=== PATIENT | female | born 1930 | race Hispanic/Latino ===

== ENCOUNTER 2017-12-04 08:15 | Day surgery (SDC) | payer MEDICARE ==
[~2017-12-04] VITALS: Ht 152.4 cm; Wt 90.8 kg
[~2017-12-04 08:15] MED LIST: ADV250 IH; ALBUHFA IH; ALEN70TA47 PO; ALLO100T PO; APIX2.5T PO; BRIM5DRO OU; CHOL200013 PO; CILO100T PO; DILT60CA PO; FURO40TA5 PO; LOSA100T20 PO; MAGN400T6 PO; NYSTPW TP; PIOG15TA66 PO; POTA10CA44 PO; SITA50TA PO; SODIUM CHLORIDE 0.9% 1000ML 1,000 ML IV ONE; THYR30TA2 PO
[2017-12-04 09:05] VITALS: BP 137/75
[2017-12-04 10:30] VITALS: BP 87/36
[2017-12-04 10:35] VITALS: BP 96/47
[2017-12-04 10:40] VITALS: BP 98/40
[2017-12-04 10:45] VITALS: BP 110/56
== END 2017-12-04 11:10 | disposition home or self-care (01) ==
LOC: DAH 08:15 → ENDO 08:15
PROVIDERS: ATTEND Internal Medicine Gastroenterology
DX: K29.50 Unspecified chronic gastritis without bleeding (principal); K31.89 Other diseases of stomach and duodenum; I48.91 Unspecified atrial fibrillation; E11.22 Type 2 diabetes mellitus with diabetic chronic kidney disease; N18.9 Chronic kidney disease, unspecified; I12.9 Hypertensive chronic kidney disease with stage 1 through stage 4 chronic kidney disease, or unspecified chronic kidney disease; K59.01 Slow transit constipation; K21.9 Gastro-esophageal reflux disease without esophagitis; E78.5 Hyperlipidemia, unspecified; E66.9 Obesity, unspecified; M19.90 Unspecified osteoarthritis, unspecified site; M81.0 Age-related osteoporosis without current pathological fracture; Z79.899 Other long term (current) drug therapy; Z98.890 Other specified postprocedural states; Z88.8 Allergy status to other drugs, medicaments and biological substances; Z68.39 Body mass index [BMI] 39.0-39.9, adult
CPT/HCPCS: 43239; 88305; 88342; 93005; A4606; J7030

== ENCOUNTER 2018-02-24 15:37 | Emergency (ER) | payer MEDICARE ==
[~2018-02-24 15:37] MED LIST changes: +ALEN70TA10 PO; -ALEN70TA47 PO; -LOSA100T20 PO; +LOSA100T58 PO; -NYSTPW TP; -SODIUM CHLORIDE 0.9% 1000ML 1,000 ML IV ONE
[2018-02-24 16:10] LABS: BASOPHILS % (AUTO) 0.3 % (0.0-5.0); EOSINOPHILS % (AUTO) 0.1 % (0.0-8.0); HEMATOCRIT 40.3 % (36-48); LYMPHOCYTES % (AUTO) 8.8 % (21.0-51.0); MEAN CORPUSCULAR HGB CONC 32.3 g/dL (32.0-36.0); MEAN CORPUSCULAR VOLUME 99.2 fL (79-99); MONOCYTES % (AUTO) 3.8 % (3.0-13.0); PLATELET COUNT (AUTO) 179 K/uL (130-400); RED BLOOD CELL COUNT(AUTO) 4.06 MIL/uL (4.00-5.50); RED CELL DISTRIBUTION WIDTH 14.6 % (11.0-15.5); WHITE BLOOD COUNT (AUTO) 9.4 K/uL (4.8-10.8)
[2018-02-24] MEDS ORDERED: DEXAMETHASONE SOD PHOSPHATE 10MG/ML 1ML VIAL ONE (16:18)
[2018-02-24] MEDS ORDERED: IPRATROPIUM/ALBUTEROL SULFATE 3 ML SOLUTION IH ONE (16:25)
[2018-02-24 16:30] LABS: INR 1.01 (0.85-1.15); PARTIAL THROMBOPLASTIN TIME 26.5 SEC (26.3-35.5); PROTHROMBIN TIME 10.6 SEC (9.6-11.6)
[2018-02-24 16:37] LABS: CREATININE 1.3 mg/dL (0.5-1.5); POTASSIUM 4.7 mmol/L (3.5-5.1)
[2018-02-24 16:42] LABS: ALBUMIN 2.9 g/dL (3.5-5.0); BILIRUBIN,TOTAL 0.3 mg/dL (0.2-1.0); TOTAL PROTEIN, SERUM 7.1 g/dL (6.0-8.3)
== END 2018-02-24 18:36 | disposition home or self-care (01) ==
LOC: EDH 15:37
DX: J45.901 Unspecified asthma with (acute) exacerbation (principal); R21 Rash and other nonspecific skin eruption; I48.91 Unspecified atrial fibrillation; I25.10 Atherosclerotic heart disease of native coronary artery without angina pectoris; M19.90 Unspecified osteoarthritis, unspecified site; E11.9 Type 2 diabetes mellitus without complications; I11.0 Hypertensive heart disease with heart failure; I50.9 Heart failure, unspecified; Z88.8 Allergy status to other drugs, medicaments and biological substances; Z98.890 Other specified postprocedural states
CPT/HCPCS: 36415; 71045; 80053; 83880; 84484; 85025; 85610; 85730; 87040; 93005; 94640; 96374; 99284; J1100

== ENCOUNTER → 2020-02-11 | Outpatient (CLI) | payer MEDICARE ==
[~2020-02-11] MED LIST changes: -ALEN70TA10 PO; +ALEN70TA69 PO; -MAGN400T6 PO; +MAGN400T8 PO
--- NOTE | 2020-02-11 10:00 | NUR ---
MBSS COMPLETED. PENETRATION WITH THIN LIQUIDS VIA STRAW. RECOMMEND FINELY CHOPPED, THIN LIQUIDS; PILLS WHOLE WITH LIQUIDS. STEEL FIXER EXPLAINED RESULTS AND RECOMMENDATIONS IN HER SLEET[place]UTE LANGUAGE OF ROMANIAN. Pt IS HARD OF HEARING. RESULTS AND RECOMMENDATIONS ALSO EXPLAINED TO Pt'S SON WHO ACCOMPANIED Pt. STEEL FIXER PROVIDED WRITTEN HANDOUT WITH RESULTS AND RECOMMENDATIONS TO PROVIDE TO CAREGIVER (DAUGHTER). ALL QUESTIONS ANSWERED AT THIS TIME. STEEL FIXER PROVIDED EXTENSION 1612. Addendum: 02/12/20 at [address] Amended: Links added. Addendum: 02/12/20 at [address] ADD RECOMMENDATIONS: 1. GI CONSULT SECONDARY TO Pt STATING FOOD "GETS STUCK" POINTING TO LEVEL OF ESOPHAGUS
== END | disposition home or self-care (01) ==
LOC: RAH 09:41
PROVIDERS: ATTEND Family Medicine
DX: R13.10 Dysphagia, unspecified (principal); J69.0 Pneumonitis due to inhalation of food and vomit; R11.10 Vomiting, unspecified
CPT/HCPCS: 74230; 92611

== ENCOUNTER 2020-03-09 06:45 | Day surgery (SDC) | payer MEDICARE ==
[2020-03-09] VITALS (8 sets, daily range): BP systolic 140–200; BP diastolic 69–93
[~2020-03-09] VITALS: Ht 152.4 cm; Wt 79.8 kg
[~2020-03-09 06:45] MED LIST changes: -ALEN70TA69 PO; +ALEN70TA80 PO; +SODIUM CHLORIDE 0.9% 1000ML 1,000 ML IV ONE
[2020-03-09] MEDS ORDERED: GABA-533 PO (08:05)
[2020-03-09] MEDS ORDERED: PANT40TA54 PO (08:05)
[2020-03-09] MEDS ORDERED: OLME40TA18 PO (08:05)
[2020-03-09] MEDS ORDERED: MEMA5TAB42 PO (08:05)
[2020-03-09] MEDS ORDERED: LORA10TA7 PO (08:05)
[2020-03-09] MEDS ORDERED: LEVO50CA4 PO (08:05)
[2020-03-09] MEDS ORDERED: CLON0.1T PO (08:05)
[2020-03-09] MEDS ORDERED: VITAD50000 PO (08:05)
[2020-03-09] MEDS ORDERED: CARV12.511 PO (08:05)
[2020-03-09] MEDS ORDERED: TERB250T51 PO (08:05)
[2020-03-09] MEDS ORDERED: OXYB5TAB15 PO (08:05)
[2020-03-09] MEDS ORDERED: SERT50TA12 PO (08:05)
[2020-03-09] MEDS ORDERED: SIMV10TA97 PO (08:05)
[2020-03-09] MEDS ORDERED: PROPOFOL 10 MG/ML 20ML VIAL IV ONE (08:31)
== END 2020-03-09 09:40 | disposition home or self-care (01) ==
LOC: ENDO 06:45 → DAH 06:45 → ENDO 09:40
PROVIDERS: ATTEND Internal Medicine
DX: R13.10 Dysphagia, unspecified (principal); Z20.828 Contact with and (suspected) exposure to other viral communicable diseases; K29.50 Unspecified chronic gastritis without bleeding; K31.89 Other diseases of stomach and duodenum; K44.9 Diaphragmatic hernia without obstruction or gangrene; K21.9 Gastro-esophageal reflux disease without esophagitis; E11.22 Type 2 diabetes mellitus with diabetic chronic kidney disease; I12.9 Hypertensive chronic kidney disease with stage 1 through stage 4 chronic kidney disease, or unspecified chronic kidney disease; N18.9 Chronic kidney disease, unspecified; I45.10 Unspecified right bundle-branch block; E66.01 Morbid (severe) obesity due to excess calories; E03.9 Hypothyroidism, unspecified; E78.5 Hyperlipidemia, unspecified; M81.0 Age-related osteoporosis without current pathological fracture; I48.20 Chronic atrial fibrillation, unspecified; M19.90 Unspecified osteoarthritis, unspecified site; H91.90 Unspecified hearing loss, unspecified ear; K76.0 Fatty (change of) liver, not elsewhere classified; Z98.890 Other specified postprocedural states; Z88.8 Allergy status to other drugs, medicaments and biological substances; Z79.899 Other long term (current) drug therapy; Z86.010 Personal history of colon polyps; Z79.890 Hormone replacement therapy; Z79.84 Long term (current) use of oral hypoglycemic drugs; Z79.01 Long term (current) use of anticoagulants; Z68.35 Body mass index [BMI] 35.0-35.9, adult
CPT/HCPCS: 43239; 82948 ×2; 88305; 88342; 93005; A4215 ×2; A4221; A4222; A4223; A4606; A4620; A4657; A4663; C9803; J2704; J7030; U0003

== ENCOUNTER → 2020-03-15 | Outpatient (CLI) | payer MEDICARE ==
[~2020-03-15] MED LIST changes: +CARV12.511 PO; -CHOL200013 PO; -CILO100T PO; +CLON0.1T PO; -DILT60CA PO; -FURO40TA5 PO; +GABA-533 PO; +IOHEXOL 350 MG/ML 100ML INFUS..BTL IV ONE; +LEVO50CA4 PO; +LORA10TA7 PO; -LOSA100T58 PO; -MAGN400T8 PO; +MEMA5TAB42 PO; +OLME40TA18 PO; +OXYB5TAB15 PO; +PANT40TA54 PO; -PIOG15TA66 PO; -POTA10CA44 PO; +SERT50TA12 PO; +SIMV10TA97 PO; -SODIUM CHLORIDE 0.9% 1000ML 1,000 ML IV ONE; +TERB250T51 PO; -THYR30TA2 PO; +VITAD50000 PO
== END | disposition home or self-care (01) ==
LOC: RAH 08:56
PROVIDERS: ATTEND Internal Medicine Gastroenterology
DX: K46.9 Unspecified abdominal hernia without obstruction or gangrene (principal); R63.4 Abnormal weight loss
CPT/HCPCS: 74178; Q9967

== ENCOUNTER 2021-05-07 21:14 | Observation (INO) | payer MEDICARE ==
[~2021-05-07] VITALS: Ht 152.4 cm; Wt 71.6 kg
[~2021-05-07 21:14] MED LIST changes: -IOHEXOL 350 MG/ML 100ML INFUS..BTL IV ONE; +SERT-439 PO; -SERT50TA12 PO; -TERB250T51 PO; +TERB250T89 PO
[2021-05-07 22:07] LABS: BILIRUBIN,URINE Negative (NEGATIVE); COLOR,URINE Yellow (YELLOW); GLUCOSE, URINE (UA) Negative (NEGATIVE); KETONES,URINE Negative (NEGATIVE); LEUKOCYTE ESTERASE ,URINE Large (NEGATIVE); NITRATE,URINE Negative (NEGATIVE); OCCULT BLOOD,URINE Moderate (NEGATIVE); PH,URINE 5.5 (5.0-8.0); PROTEIN,URINE Negative (NEGATIVE); UROBILINOGEN,URINE 0.2 mg/dL (0.2-1.0)
[2021-05-07 22:11] LABS: APPEARANCE,URINE CLOUDY (CLEAR)
[2021-05-07 22:20] LABS: BASOPHILS % (AUTO) 0.4 % (0.0-5.0); EOSINOPHILS % (AUTO) 2.3 % (0.0-8.0); HEMATOCRIT 36.3 % (36-48); LYMPHOCYTES % (AUTO) 16.5 % (21.0-51.0); MEAN CORPUSCULAR HEMOGLOBIN 31.1 pg (27.0-33.0); MEAN CORPUSCULAR HGB CONC 31.7 g/dL (32.0-36.0); MEAN CORPUSCULAR VOLUME 98.1 fL (79-99); NEUTROPHILS % (AUTO) 71.5 % (40.0-77.0); PLATELET COUNT (AUTO) 145 K/uL (130-400); RED CELL DISTRIBUTION WIDTH 13.7 % (11.0-15.5); WHITE BLOOD COUNT (AUTO) 7.1 K/uL (4.8-10.8)
[2021-05-07 22:24] LABS: BACTERIA,URINE Few /HPF (None Seen); SQUAMOUS EPITHELIAL CELL,UR 0-2 /HPF (0-2); WBC,URINE 51-100 /HPF (0-1)
[2021-05-07 22:38] LABS: POTASSIUM 5.3 mmol/L (3.5-5.1)
[2021-05-07 22:39] LABS: ALBUMIN 3.2 g/dL (3.5-5.0); BILIRUBIN,TOTAL 0.2 mg/dL (0.2-1.0); CREATININE 2.3 mg/dL (0.5-1.5); TOTAL PROTEIN, SERUM 7.4 g/dL (6.0-8.3)
[2021-05-07] MEDS ORDERED: CEFTRIAXONE 1G VIAL IVP STA (22:52)
[2021-05-08] MEDS ORDERED: CEFTRIAXONE 1G VIAL IVP ONE (01:30)
[2021-05-08] MEDS ORDERED: NITROGLYCERIN 0.4 MG SL TAB SL PRN (02:30)
[2021-05-08] MEDS ORDERED: ONDANSETRON 4MG INJ IV PRN (02:30)
[2021-05-08] MEDS ORDERED: MAG/ALUM/SIMETH 30 ML UDCUP PO PRN (02:30)
[2021-05-08] MEDS ORDERED: LACTULOSE 20 GM/30 ML UDCUP PO PRN (02:30)
[2021-05-08] MEDS ORDERED: ACETAMINOPHEN 325 MG TAB PO PRN ×2 (02:30)
[2021-05-08] MEDS ORDERED: GUAIFENESIN-DM 200/20 MG 10 ML PO PRN (02:30)
[2021-05-08 03:45] VITALS: BP 165/67
[2021-05-08] MEDS ORDERED: DEXTROSE 50%-WATER 50 ML DISP.SYRIN IV PRN (04:30)
[2021-05-08] MEDS ORDERED: POTASSIUM CHLORIDE 10% ELIXIR 20 MEQ/15 ML UDCUP PO PRN (04:30)
[2021-05-08] MEDS ORDERED: POTASSIUM CHLORIDE 10MEQ/100ML 100 ML IV PRN (04:30)
[2021-05-08] MEDS ORDERED: KCL 20 MEQ ERTAB PO PRN (04:30)
[2021-05-08] MEDS ORDERED: GLUCAGON 1MG KIT 1 MG ML IM PRN (04:30)
[2021-05-08] MEDS ORDERED: MAGNESIUM 2GM PREMIX 50ML 50 ML IV PRN (04:30)
[2021-05-08 04:59] LABS: BASOPHILS % (AUTO) 0.4 % (0.0-5.0); EOSINOPHILS % (AUTO) 2.7 % (0.0-8.0); HEMATOCRIT 37.9 % (36-48); LYMPHOCYTES % (AUTO) 15.6 % (21.0-51.0); MEAN CORPUSCULAR HEMOGLOBIN 31.7 pg (27.0-33.0); MEAN CORPUSCULAR HGB CONC 31.9 g/dL (32.0-36.0); MEAN CORPUSCULAR VOLUME 99.2 fL (79-99); MONOCYTES % (AUTO) 9.8 % (3.0-13.0); NEUTROPHILS % (AUTO) 71.1 % (40.0-77.0); PLATELET COUNT (AUTO) 140 K/uL (130-400); RED BLOOD CELL COUNT(AUTO) 3.82 MIL/uL (4.00-5.50); RED CELL DISTRIBUTION WIDTH 13.8 % (11.0-15.5); WHITE BLOOD COUNT (AUTO) 6.7 K/uL (4.8-10.8)
[2021-05-08] MEDS ORDERED: HYDRALAZINE HCL 10 MG TABLET PO PRN (05:00)
[2021-05-08 05:11] LABS: INR 1.07 (0.85-1.15); PROTHROMBIN TIME 11.6 SEC (9.6-11.6)
[2021-05-08 05:12] LABS: PARTIAL THROMBOPLASTIN TIME 35.3 SEC (26.3-35.5)
[2021-05-08 05:18] LABS: HEMOGLOBIN A1C 6.4 % (4.0-6.0)
[2021-05-08] MEDS ORDERED: SIMV10TA97 PO (05:22)
[2021-05-08] MEDS ORDERED: FURO20TA4 PO (05:22)
[2021-05-08] MEDS ORDERED: CARV12.511 PO (05:22)
[2021-05-08] MEDS ORDERED: CLON0.1T PO (05:22)
[2021-05-08] MEDS ORDERED: SERT-439 PO (05:22)
[2021-05-08] MEDS ORDERED: APIX2.5T PO (05:22)
[2021-05-08] MEDS ORDERED: ERGO500093 PO (05:22)
[2021-05-08] MEDS ORDERED: OLME40TA18 PO (05:22)
[2021-05-08 05:24] LABS: ALBUMIN 3.1 g/dL (3.5-5.0); BILIRUBIN,TOTAL 0.2 mg/dL (0.2-1.0); CREATININE 2.2 mg/dL (0.5-1.5); POTASSIUM 5.5 mmol/L (3.5-5.1); THYROID STIMULATING HORMONE 5.32 uIU/mL (0.36-3.74); TOTAL PROTEIN, SERUM 7.4 g/dL (6.0-8.3)
[2021-05-08 07:10] VITALS: BP 157/53
[2021-05-08] MEDS: INSULIN HUMULIN R 100 UNIT/ML 3ML SQ SCH ×4 (07:30→21:00)
[2021-05-08] MEDS: PANTOPRAZOLE 40 MG/VIAL IVP SCH ×2 (08:53→21:16)
[2021-05-08] MEDS: FUROSEMIDE 20MG VIAL IV SCH (08:54)
[2021-05-08] MEDS: MEMANTINE HCL 5 MG TABLET PO SCH ×2 (08:54→21:16)
[2021-05-08] MEDS: LEVOTHYROXINE 50 MCG TABLET PO SCH (08:54)
[2021-05-08] MEDS: APIXABAN 2.5 MG TABLET PO SCH ×2 (08:55→21:31)
[2021-05-08 11:05] VITALS: BP 154/72
[2021-05-08 15:05] VITALS: BP 148/58
[2021-05-08 19:59] LABS: MEAN CORPUSCULAR HEMOGLOBIN 31.9 pg (27.0-33.0); MEAN CORPUSCULAR HGB CONC 33.1 g/dL (32.0-36.0); MEAN CORPUSCULAR VOLUME 96.2 fL (79-99); PLATELET COUNT (AUTO) 150 K/uL (130-400); RED BLOOD CELL COUNT(AUTO) 3.64 MIL/uL (4.00-5.50); RED CELL DISTRIBUTION WIDTH 13.8 % (11.0-15.5); WHITE BLOOD COUNT (AUTO) 7.7 K/uL (4.8-10.8)
[2021-05-08 20:00] VITALS: BP 140/59
[2021-05-08 20:13] LABS: BILIRUBIN,TOTAL 0.2 mg/dL (0.2-1.0); CREATININE 1.8 mg/dL (0.5-1.5); POTASSIUM 4.7 mmol/L (3.5-5.1); TOTAL PROTEIN, SERUM 7.2 g/dL (6.0-8.3)
[2021-05-08 20:28] LABS: BASOPHILS % (MANUAL) 1 % (0-2); EOSINOPHILS % (MANUAL) 2 % (1-6); LYMPHOCYTES % (MANUAL) 14 % (22-44); MAN.DIFF COMMENT-IMPRESSION MANUAL DIFFERENTIAL; MONOCYTES % (MANUAL) 7 % (2-9); SEGMENTED NEUTROPHILS % 76 % (40-70)
[2021-05-08 20:29] LABS: PLATELET MORPHOLOGY COMMENT ADEQUATE
[2021-05-08] MEDS: OXYBUTYNIN CHLORIDE 5 MG TABLET PO SCH (21:16)
[2021-05-08] MEDS: CEFTRIAXONE 1G VIAL IVP SCH (21:16)
[2021-05-08] MEDS: SIMVASTATIN 20 MG TABLET PO SCH (21:16)
[2021-05-08] MEDS: SERTRALINE HCL 50 MG TABLET PO SCH (21:17)
[2021-05-08 23:46] VITALS: BP 109/50
[2021-05-09 04:32] VITALS: BP 127/61
[2021-05-09 07:30] VITALS: BP 123/54
[2021-05-09] MEDS: INSULIN HUMULIN R 100 UNIT/ML 3ML SQ SCH ×4 (07:30→20:28)
[2021-05-09] MEDS: MEMANTINE HCL 5 MG TABLET PO SCH ×2 (10:16→20:11)
[2021-05-09] MEDS: APIXABAN 2.5 MG TABLET PO SCH ×2 (10:16→20:11)
[2021-05-09] MEDS: PANTOPRAZOLE 40 MG/VIAL IVP SCH ×2 (10:16→20:11)
[2021-05-09] MEDS: OXYBUTYNIN CHLORIDE 5 MG TABLET PO SCH ×2 (10:16→20:10)
[2021-05-09] MEDS: FUROSEMIDE 20MG VIAL IV SCH (10:16)
[2021-05-09] MEDS: LEVOTHYROXINE 50 MCG TABLET PO SCH (10:17)
[2021-05-09 11:00] VITALS: BP 121/50
[2021-05-09 16:00] VITALS: BP 114/58
[2021-05-09] MEDS ORDERED: TOPIRAMATE 25 MG TABLET ONE (20:06)
[2021-05-09] MEDS: SIMVASTATIN 20 MG TABLET PO SCH (20:10)
[2021-05-09] MEDS: CEFTRIAXONE 1G VIAL IVP SCH (20:10)
[2021-05-09] MEDS: SERTRALINE HCL 50 MG TABLET PO SCH (20:10)
[2021-05-09 20:30] VITALS: BP 135/73
[2021-05-09] MEDS ORDERED: TOPIRAMATE 25 MG TABLET PO SCH (21:00)
[2021-05-10 00:11] VITALS: BP 148/81
[2021-05-10 04:05] LABS: BASOPHILS % (AUTO) 0.6 % (0.0-5.0); EOSINOPHILS % (AUTO) 1.5 % (0.0-8.0); HEMATOCRIT 37.3 % (36-48); MEAN CORPUSCULAR HGB CONC 32.2 g/dL (32.0-36.0); MEAN CORPUSCULAR VOLUME 96.4 fL (79-99); NEUTROPHILS % (AUTO) 66.4 % (40.0-77.0); PLATELET COUNT (AUTO) 161 K/uL (130-400); RED BLOOD CELL COUNT(AUTO) 3.87 MIL/uL (4.00-5.50); RED CELL DISTRIBUTION WIDTH 13.9 % (11.0-15.5); WHITE BLOOD COUNT (AUTO) 8.7 K/uL (4.8-10.8)
[2021-05-10 04:16] VITALS: BP 150/84
[2021-05-10 04:45] LABS: ALBUMIN 2.9 g/dL (3.5-5.0); BILIRUBIN,TOTAL 0.2 mg/dL (0.2-1.0); CREATININE 1.8 mg/dL (0.5-1.5); POTASSIUM 4.3 mmol/L (3.5-5.1); TOTAL PROTEIN, SERUM 7.3 g/dL (6.0-8.3)
[2021-05-10] MEDS: INSULIN HUMULIN R 100 UNIT/ML 3ML SQ SCH ×2 (05:23→11:30)
[2021-05-10] MEDS: LEVOTHYROXINE 50 MCG TABLET PO SCH (05:27)
[2021-05-10 08:00] VITALS: BP 145/74
[2021-05-10] MEDS: OXYBUTYNIN CHLORIDE 5 MG TABLET PO SCH (09:33)
[2021-05-10] MEDS: PANTOPRAZOLE 40 MG/VIAL IVP SCH (09:33)
[2021-05-10] MEDS: FUROSEMIDE 20MG VIAL IV SCH (09:33)
[2021-05-10] MEDS: APIXABAN 2.5 MG TABLET PO SCH (09:33)
[2021-05-10] MEDS: MEMANTINE HCL 5 MG TABLET PO SCH (09:33)
[2021-05-10] MEDS ORDERED: AMOX-426 PO (11:55)
[2021-05-10 12:00] VITALS: BP 174/93
[2021-05-10] MEDS ORDERED: TOPI25TA42 PO (16:24)
== END 2021-05-10 18:30 | disposition home or self-care (01) ==
LOC: EDH 21:14 → EDHIP 05-08 02:18 → 4AH 05-08 02:51
PROVIDERS: ADMIT Internal Medicine Pulmonary Disease; ATTEND Internal Medicine Pulmonary Disease
DX: R51.9 Headache, unspecified (principal); I48.20 Chronic atrial fibrillation, unspecified; N39.0 Urinary tract infection, site not specified; R00.1 Bradycardia, unspecified; J44.9 Chronic obstructive pulmonary disease, unspecified; N17.9 Acute kidney failure, unspecified; I12.0 Hypertensive chronic kidney disease with stage 5 chronic kidney disease or end stage renal disease; N18.5 Chronic kidney disease, stage 5; E11.22 Type 2 diabetes mellitus with diabetic chronic kidney disease; E03.9 Hypothyroidism, unspecified; I25.10 Atherosclerotic heart disease of native coronary artery without angina pectoris; G30.9 Alzheimer's disease, unspecified; F02.80 Dementia in other diseases classified elsewhere, unspecified severity, without behavioral disturbance, psychotic disturbance, mood disturbance, and anxiety; G47.33 Obstructive sleep apnea (adult) (pediatric); M10.9 Gout, unspecified; R33.9 Retention of urine, unspecified; Z79.899 Other long term (current) drug therapy; Z98.890 Other specified postprocedural states; Z79.01 Long term (current) use of anticoagulants; Z79.890 Hormone replacement therapy
CPT/HCPCS: 36415 ×3; 70450; 70551; 71045; 80053 ×4; 81001; 82948 ×4; 83036; 83735; 83880; 84443; 84484 ×2; 85025 ×4; 85610; 85730; 87040 ×2; 87088; 93005 ×2; 93306; 93356; 96374; 96375; 96376 ×3; 97039 ×2; 97161; 99285; C9113 ×5; G0378 ×61; J0696 ×3; J1940 ×3

== ENCOUNTER 2021-07-28 21:47 | Emergency (ER) | payer MEDICARE ==
[~2021-07-28 21:47] MED LIST changes: +AMOX-426 PO; +ERGO500093 PO; +FURO20TA4 PO; +TOPI25TA42 PO
[2021-07-28] MEDS ORDERED: METH-662 PO (22:22)
[2021-07-28] MEDS ORDERED: ACET-2247 PO (22:22)
[2021-07-28] MEDS ORDERED: ACETAMINOPHEN 500 MG TABLET PO ONE (22:30)
[2021-07-28] MEDS ORDERED: CYCLOBENZAPRINE HCL 10 MG TABLET PO ONE (22:30)
[2021-07-28 22:39] LABS: BASOPHILS % (AUTO) 0.6 % (0.0-5.0); EOSINOPHILS % (AUTO) 0.8 % (0.0-8.0); HEMATOCRIT 40.2 % (36-48); MEAN CORPUSCULAR HEMOGLOBIN 32.6 pg (27.0-33.0); MEAN CORPUSCULAR HGB CONC 32.6 g/dL (32.0-36.0); NEUTROPHILS % (AUTO) 75.2 % (40.0-77.0); PLATELET COUNT (AUTO) 183 K/uL (130-400); RED BLOOD CELL COUNT(AUTO) 4.02 MIL/uL (4.00-5.50); RED CELL DISTRIBUTION WIDTH 14.6 % (11.0-15.5); WHITE BLOOD COUNT (AUTO) 7.2 K/uL (4.8-10.8)
[2021-07-28 22:53] LABS: CREATININE 2.4 mg/dL (0.5-1.5); POTASSIUM 5.1 mmol/L (3.5-5.1)
[2021-07-28 22:58] LABS: ALBUMIN 3.3 g/dL (3.5-5.0); BILIRUBIN,TOTAL 0.3 mg/dL (0.2-1.0); TOTAL PROTEIN, SERUM 6.7 g/dL (6.0-8.3)
[2021-07-28 23:31] VITALS: BP 99/53
== END 2021-07-29 00:09 | disposition home or self-care (01) ==
LOC: EDH 21:47
DX: M43.6 Torticollis (principal); N28.9 Disorder of kidney and ureter, unspecified; F03.90 Unspecified dementia, unspecified severity, without behavioral disturbance, psychotic disturbance, mood disturbance, and anxiety; I10 Essential (primary) hypertension; I48.91 Unspecified atrial fibrillation; Z79.01 Long term (current) use of anticoagulants; Z79.51 Long term (current) use of inhaled steroids
CPT/HCPCS: 36415; 80053; 82550; 84484; 85025